=== PATIENT | female | born 1980 | race Caucasian/White ===

== ENCOUNTER 2017-03-19 20:27 | Emergency (ER) | payer OTHER ==
[~2017-03-19 20:27] MED LIST: ASPIR 8181 M1 PO; ASPIRIN EC325 MG PO; CLOPIDOGREL75 MG PO; NICOTINE PATCH1 EAC1 TD; NITROSTAT0.4 MG SL; PRAVACHOL20 MG PO; PRAVASTATIN SOD20 MG PO; PRAVASTATIN SOD40 MG PO; VERAPAMIL SR120 MG PO
== END 2017-03-19 20:35 | disposition left against medical advice (07) ==
LOC: EME 20:27
DX: M79.89 Other specified soft tissue disorders (principal); Z53.21 Procedure and treatment not carried out due to patient leaving prior to being seen by health care provider

== ENCOUNTER 2018-02-09 11:52 | Emergency (ER) | payer OTHER ==
[~2018-02-09] VITALS: Ht 165.1 cm; Wt 73.6 kg
[2018-02-09 12:23] LABS: HEMATOCRIT 39.8 % (36.0-46.0); HEMOGLOBIN 13.6 G/DL (11.9-15.5); MCH 31.3 PG (29.0-34.0); MCHC 34.2 G/DL (30.0-36.0); MCV 91.5 FL (83-99); PLATELET COUNT 229 K/uL (156-360); RBC DIS.WIDTH-CV 11.9 % (11.8-14.6); RBC DIS.WIDTH-SD 40.4 % (39-53); RED BLOOD COUNT 4.35 M/uL (3.80-5.20); WHITE BLOOD COUNT 6.7 K/uL (4.1-10.2)
[2018-02-09 12:31] LABS: CHLORIDE 105 mEq/L (99-109); POTASSIUM 3.9 mEq/L (3.7-5.4); SODIUM 136 mEq/L (136-147)
[2018-02-09 12:33] LABS: GLUCOSE 81 mg/dL (70-99)
[2018-02-09 12:43] LABS: TROP-I INTERPRETATION NEGATIVE; TROPONIN-I < 0.01 ng/mL (0.0-0.30)
[2018-02-09 12:45] LABS: CREATININE 0.7 mg/dL (0.6-1.3); GFR ESTIMATE (CALCULATED) > 59 mL/min/; QUANTITATIVE HCG < 4.0 MIU/ML; UREA NITROGEN (BUN) 16 mg/dL (9-23)
[2018-02-09 12:50] LABS: TOTAL PROTEIN 6.4 g/dL (6.4-8.3)
[2018-02-09 12:52] LABS: TOTAL BILIRUBIN 0.2 mg/dL (0.0-1.0)
[2018-02-09 12:53] LABS: ALKALINE PHOSPHATASE 79 IU/L (3-129)
[2018-02-09 12:55] LABS: AST (GOT) 23 IU/L (2-34); DIRECT BILIRUBIN 0.1 mg/dL (0.0-0.3)
[2018-02-09 12:56] LABS: ALT (GPT) 20 IU/L (3-49)
[2018-02-09 15:52] LABS: TROP-I INTERPRETATION NEGATIVE; TROPONIN-I < 0.01 ng/mL (0.0-0.30)
[2018-02-09 16:12] VITALS: BP 111/72
== END 2018-02-09 16:13 | disposition home or self-care (01) ==
LOC: EME 11:52
PROVIDERS: Nurse Practitioner Family
DX: R07.9 Chest pain, unspecified (principal); I25.2 Old myocardial infarction; F17.200 Nicotine dependence, unspecified, uncomplicated; Z79.02 Long term (current) use of antithrombotics/antiplatelets; Z88.0 Allergy status to penicillin
CPT/HCPCS: 71046; 80048; 80076; 84484; 84702; 85027; 93005; 99281; 99284